=== PATIENT | male | born 1980 | race African-American/Black ===

== ENCOUNTER 2017-01-05 10:32 | Emergency (ER) | payer SELFPAY ==
[2017-01-05 10:38] VITALS: TEMP 98.1; BMI 41.9
[2017-01-05] MEDS ORDERED: SODIUM CHLORIDE 1,000 ML IV ONE (10:56)
--- NOTE | 2017-01-05 11:08 | PDOC ---
History of Present Illness - General History Source: Patient, Family - History of Present Illness Initial Comments: 01/05/17 12:54 The patient is a 36 year old male, with a significant past medical history of diabetes, hypertension, hyperlipidemia, and asthma who presents to the emergency department complaining of left sided abdominal pain, left flank pain, and hypertension for approximately 1 month. The patient reports he normally races up to school with his children, however, about a month ago as he was jogging up to school he had to stop along the way due to left-sided abdominal pain. The patient reports the pain is intermittent and mainly comes at night, with symptoms usually lasting several minutes. The patient denies worsening of the pain on exertion. He currently rates the pain a 3/10, but at about 09:00 the pain was a 5/10. He reports unassociated nausea, but denies vomiting, diarrhea, or constipation. At night he reports dry eyes, but denies any changes in vision. The patient admits he has been noncompliant with his diabetes medications since his diagnosis in 2005; however, as of 2 weeks ago he has been taking metformin BID. He reports increased urinary frequency, but denies urgency , dysuria, or hematuria. The patient denies any chest pain, shortness of breath , diaphoresis or palpitations. The patient reports a cough(associated with marijuana use), but denies any fever, chills, headache, or dizziness. Allergies: None reported. Past Surgical History: None reported. Social History: Marijuana smoker. Denies alcohol or other recreational drug use. PCP: Dr. Zia Soto <Bekah Wagner - Last Filed: 01/05/17 12:54> - General History Source: Patient Exam Limitations: No Limitations <Morgan Mcdermott - Last Filed: 01/05/17 13:54> - General Chief Complaint: Pain, Acute Stated Complaint: LT SIDE/ABD PAIN. BLURRY VISION Time Seen by Provider: 01/05/17 10:42 Past History <Bekah Wagner - Last Filed: 01/05/17 12:54> - Past Medical History Asthma: Yes Diabetes: Yes HTN: Yes Hypercholesterolemia: Yes - Immunization History Immunization Up to Date: Yes - Psycho/Social/Smoking Cessation Hx Anxiety: No Suicidal Ideation: No Smoking History: Never smoked Number of Cigarettes Smoked Daily: 0 Cigars Per Day: 0 Information on smoking cessation initiated: No Hx Alcohol Use: No Drug/Substance Use Hx: Yes (MARIJUANA) Substance Use Type: None <Morgan Mcdermott - Last Filed: 01/05/17 13:54> - Past Medical History Allergies/Adverse Reactions: Allergies Allergy/AdvReac Type Severity Reaction Status Date / Time No Known Allergies Allergy Verified 01/05/17 10:38 Home Medications: Ambulatory Orders Albuterol Sulfate Inhaler - [Ventolin HFA Inhaler -] 2 inh PO Q4H PRN #1 inh 02/26 Losartan/Hydrochlorothiazide [Losartan-Hctz 100-12.5 mg Tab] 1 each PO ASDIR 02/26 Prednisone [Deltasone -] 20 mg PO BID #10 tablet 03/19/15 Review of Systems - Review of Systems Able to Perform ROS?: Yes Comments:: 01/05/17 12:55 CONSTITUTIONAL: No reported: Fever, Chills, Diaphoresis, Generalized Weakness, Malaise, Loss of Appetite HEENT: +Dry eyes. No reported: Rhinorrhea, Nasal Congestion, Throat Pain, Throat Swelling, Difficulty Swallowing, Mouth Swelling, Ear Pain, Eye Pain, Visual Changes CARDIOVASCULAR: No reported: Chest Pain, Syncope, Palpitations, Irregular Heart Rate, Lightheadedness, Peripheral Edema RESPIRATORY: +Cough. No reported: Shortness of Breath, SOB with Exertion, Orthopnea, Wheezing , Stridor, Hemoptysis GASTROINTESTINAL: +Abdominal pain, +Nausea. No reported: Abdominal Distension, Vomiting, Diarrhea , Constipation, Melena, Hematochezia GENITOURINARY: +Frequency, +Left flank pain. No reported: Dysuria, Urgency, Hesitancy, Genital Pain MUSCULOSKELETAL: No reported: Myalgia, Arthralgia, Joint Swelling, Back pain, Neck Pain SKIN: No reported: Rash, Itching, Pallor HEMEATOLOGIC/IMMUNOLOGIC: No reported: Easy Bleeding, Easy Bruising, Lymphadenopathy, Frequent infections ENDOCRINE: No reported: Unexplained Weight Gain, Unexplained Weight Loss, Heat Intolerance , Cold Intolerance NEUROLOGIC: No reported: Headache, Focal Weakness, Paresthesias, Vertigo, Lightheadedness, Unsteady Gait, Seizure, Mental Status Changes, Incontinence PSYCHIATRIC: No reported: Anxiety, Depression <Bekah Wagner - Last Filed: 01/05/17 12:54> *Physical Exam - Vital Signs Last Vital Signs Temp Pulse Resp BP Pulse Ox 98.1 F 89 18 163/108 100 01/05/17 10:35 01/05/17 11:36 01/05/17 11:36 01/05/17 11:36 01/05/17 11:36 - Physical Exam Comments: 01/05/17 12:55 GENERAL: +Obese. The patient is awake, alert, and fully oriented, Nontoxic - in no acute distress. HEAD: Normocephalic, atraumatic. EYES: extraocular movements intact, sclera anicteric, conjunctiva clear. ENT: Normal voice, Moist mucous membranes. NECK: Normal range of motion, supple LUNGS: Breath sounds equal, clear to auscultation bilaterally. No wheezes, no rhonchi, no rales. HEART: Regular rate and rhythm, without murmur, rub or gallop. ABDOMEN: Soft, nontender, normoactive bowel sounds. No guarding, no rebound.No CVA tenderness EXTREMITIES: Normal range of motion, no edema. No clubbing or cyanosis. No cords, erythema, or tenderness. NEUROLOGICAL: No facial asymmetry, Normal speech, PSYCH: Normal mood, normal affect. SKIN: Warm, Dry, normal turgor, No rashes <Wagner,Giomilsy - Last Filed: 01/05/17 12:54> - Vital Signs Last Vital Signs Temp Pulse Resp BP Pulse Ox 98.1 F 111 H 18 170/127 97 01/05/17 10:35 01/05/17 10:35 01/05/17 10:35 01/05/17 10:35 01/05/17 10:35 <Morgan Mcdermott - Last Filed: 01/05/17 13:54> Heart Score/ECG Review - ECG Impressions Comment:: 01/05/17 12:38 Twelve-lead EKG was performed and reviewed by me. There is normal sinus rhythm with a rate of 102 The axis is normal. nonspecific twave changes <Morgan Mcdermott - Last Filed: 01/05/17 13:54> ED Treatment Course - LABORATORY CBC & Chemistry Diagram: 01/05/17 11:12 01/05/17 11:12 - ADDITIONAL ORDERS Additional order review: 01/05/17 11:12 RBC 5.77 H MCV 81.8 MCHC 32.7 RDW 13.9 MPV 9.3 Neutrophils % 52.6 Lymphocytes % 35.7 Monocytes % 8.5 Eosinophils % 2.0 Basophils % 1.2 - Medications Given in the ED: ED Medications Discontinued Medications Generic Name Dose Route Start Last Admin Trade Name Kailyn PRN Reason Stop Dose Admin Ketorolac Tromethamine 30 mg 01/05/17 11:15 01/05/17 11:26 Toradol Injection - IVPUSH 01/05/17 11:16 30 mg ONCE ONE Administration <Bekah Wagner - Last Filed: 01/05/17 12:54> - LABORATORY CBC & Chemistry Diagram: 01/05/17 11:12 01/05/17 11:12 <Morgan Mcdermott - Last Filed: 01/05/17 13:54> Medical Decision Making - Medical Decision Making 01/05/17 11:09 36y M hx of dm, htn, presents with 1 month of intermittent L flank pain that lasts for several minutes before resolving associated with mild nausea, without any fever/chills, diarrhea, dysuria. Pt does note increased urination as well as feeling of dry eyes in the evening (no blurry vision as documented in triage) . pt notes he is noncompliant with his meds due to insurance issues.pts vitals noted for tachycardia, however pts exam otherwise was unremarkable without any focal tenderness. ?kidney stones vs muscle strain will give toradol, fluids will obtain ua to r/o hematuria, glucosuria will reassess A portion of this note was documented by scribe services under my direction. I have reviewed the details of the note, within reason, and agree with the documentation with the following case summary and management plan written by me 01/05/17 12:35 labs reviewed ua pending pt states pain resolved, abd is soft notnender. will reassess bgm and ua HR and BP also improved 01/05/17 13:33 ua shows glucosuria and some proteinuria - will have pt fu with pmd to have this reviewed. I discussed the physical exam findings, ancillary test results and final diagnoses with the patient. I answered all of the patient's questions. The patient was satisfied with the care received and felt comfortable with the discharge plan and treatment plan. The patient will call their primary care physician within 24 hours to arrange follow-up and will return to the Emergency Department with any new, persistent or worsening symptoms. <Morgan Mcdermott - Last Filed: 01/05/17 13:54> *DC/Admit/Observation/Transfer - Attestations Scribe Attestion: 01/05/17 11:44 Documentation prepared by Bekah Wagner, acting as medical billing coder for Morgan Mcdermott MD. <Bekah Wagner - Last Filed: 01/05/17 12:54> - Discharge Dispostion Admit: No <Morgan Mcdermott - Last Filed: 01/05/17 13:54> Diagnosis at time of Disposition: Proteinuria due to type 2 diabetes mellitus Diabetes Qualifiers: Diabetes mellitus type: type 2 Diabetes mellitus complication status: without complication Diabetes mellitus chcf insulin use: without energy efficient site manager use Qualified Code(s): E11.9 - Type 2 diabetes mellitus without complications Abdominal pain Qualifiers: Abdominal location: left upper quadrant Qualified Code(s): R10.12 - Left upper quadrant pain - Discharge Dispostion Disposition: HOME Condition at time of disposition: Improved - Referrals Referrals: Zia Soto MD [Staff Physician] - - Patient Instructions Printed Discharge Instructions: DI for Diabetes Type 2, DI for High Blood Pressure Additional Instructions: Return to the emergency department immediately with ANY new, persistent or worsening symptoms. You MUST call and follow up with your doctor tomorrow for further evaluation of your symptoms. Results were discussed with you. Please make sure your doctor reviews the results of your emergency evaluation. If you had any xrays during your visit, it was read preliminarily by myself, a Radiologist will review it and if there are any additional findings we will call you. Print Language: GREEK
[2017-01-05] MEDS ORDERED: KETOROLAC TROMETHAMINE 30 MG/1 ML VIAL IVPUSH ONE (11:15)
[2017-01-05 11:24] LABS: BASOPHIL 1.2 % (0-2.0); MCH 26.7 pg (25.7-33.7); MCHC 32.7 g/dl (32.0-35.9); MEAN CELL VOLUME 81.8 fl (80-96); MEAN PLT VOLUME 9.3 fl (7.5-11.1); NEUTROPHILS 52.6 % (42.8-82.8); PLATELET COUNT 234 K/MM3 (134-434); RDW 13.9 % (11.9-15.9); WHITE BLOOD COUNT 6.3 K/mm3 (4.0-10.0)
[2017-01-05] MEDS ORDERED: KETOROLAC TROMETHAMINE 30 MG/1 ML VIAL ONE (11:25)
[2017-01-05 11:49] LABS: ALBUMIN 3.2 g/dl (3.4-5.0); ANION GAP 14 (8-16); BILIRUBIN,TOTAL 0.3 mg/dL (0.2-1.0); CALCIUM 9.4 mg/dL (8.5-10.1); CO2 33 mmol/L (21-32); CREATININE 1.3 mg/dL (0.7-1.3); SGPT/ALT 49 U/L (12-78)
[2017-01-05 12:00] LABS: ALK PHOS 123 U/L (45-117)
[2017-01-05 12:04] LABS: GLUCOSE,RANDOM 379 mg/dL (74-106); SGOT/AST 32 U/L (15-37)
[2017-01-05 13:14] LABS: TROPONIN I < 0.02 ng/ml (0.00-0.05)
[2017-01-05 13:30] VITALS: BP 167/99; PULSE 84
[2017-01-05 13:30] LABS: URINE APPEARANCE CLEAR; URINE BILIRUBIN NEGATIVE (NEGATIVE); URINE BLOOD NEGATIVE (NEGATIVE); URINE COLOR COLORLESS; URINE GLUCOSE (UA) 3+ (NEGATIVE); URINE KETONE NEGATIVE (NEGATIVE); URINE LEUK ESTERASE NEGATIVE (NEGATIVE); URINE NITRITE NEGATIVE (NEGATIVE); URINE UROBILINOGEN NEGATIVE E.U./dl (0.2-1.0)
[2017-01-05 13:31] LABS: URINE PROTEIN 2+ (NEGATIVE)
[2017-01-05 13:32] LABS: URINE WBC <1 /hpf (3-5)
--- NOTE | 2017-01-06 18:33 | EKG ---
Test Reason : Blood Pressure : / mmHG Vent. Rate : 102 BPM Atrial Rate : 102 BPM P-R Int : 146 ms QRS Dur : 092 ms QT Int : 360 ms P-R-T Axes : 054 034 155 degrees QTc Int : 469 ms SINUS TACHYCARDIA T WAVE ABNORMALITY, CONSIDER ANTEROLATERAL ISCHEMIA ABNORMAL ECG NO PREVIOUS ECGS AVAILABLE Confirmed by ADORE BECERRA MD ([id number]) on 01/06/2017 6:32:41 PM Referred By: Confirmed By:ADORE BECERRA MD
== END 2017-01-05 14:01 | disposition home or self-care (01) ==
LOC: JER 10:32
PROC: 3E0333Z Introduction of Anti-inflammatory into Peripheral Vein, Percutaneous Approach (ICD-10-PCS; principal; 2017-01-05)
PROC: 3E0337Z Introduction of Electrolytic and Water Balance Substance into Peripheral Vein, Percutaneous Approach (ICD-10-PCS; 2017-01-05)
DX: E11.9 Type 2 diabetes mellitus without complications (principal); R10.12 Left upper quadrant pain; I10 Essential (primary) hypertension
CPT/HCPCS: 36415; 80053; 81003; 81015; 82550; 83690; 84484; 85025; 93005; 93010; 96360; 96372; 99284-25

== ENCOUNTER 2020-05-19 17:44 | Emergency (ER) | payer OTHER ==
[2020-05-19 17:57] VITALS: BMI 39.2
[2020-05-19] MEDS ORDERED: DIPHTH,PERTUSS(ACELL),TET 0.5 ML DISP.SYRIN IM ONE ×2 (18:58→20:10)
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
[2020-05-19 20:28] VITALS: BP 161/103; PULSE 91
[2020-05-20 02:21] VITALS: TEMP 97.1
== END 2020-05-19 19:30 | disposition short-term general hospital (02) ==
LOC: JER 17:44
PROC: 3E0234Z Introduction of Serum, Toxoid and Vaccine into Muscle, Percutaneous Approach (ICD-10-PCS; principal; 2020-05-19)
DX: S51.832A Puncture wound without foreign body of left forearm, initial encounter (principal); S09.90XA Unspecified injury of head, initial encounter; H33.21 Serous retinal detachment, right eye; T76.11XA Adult physical abuse, suspected, initial encounter; W22.8XXA Striking against or struck by other objects, initial encounter; Y04.8XXA Assault by other bodily force, initial encounter
CPT/HCPCS: 70450-TC; 70480-TC; 76512; 90715; 99284-25

== ENCOUNTER 2022-06-06 09:26 | Emergency (ER) | payer OTHER ==
[2022-06-06 09:34] VITALS: BP 167/126; PULSE 90; RESP 18; TEMP 97; BMI 36.6
[2022-06-06] MEDS ORDERED: IBUPROFEN 600 MG TABLET (FP) PO ONE ×2 (09:58→10:00)
== END 2022-06-06 10:30 | disposition home or self-care (01) ==
LOC: JERFT 09:26
DX: S69.92XA Unspecified injury of left wrist, hand and finger(s), initial encounter (principal); W22.8XXA Striking against or struck by other objects, initial encounter
CPT/HCPCS: 73130-TC-LT-FY; 99283-25

== ENCOUNTER 2024-03-03 17:36 | Inpatient (IN) | payer OTHER ==
[2024-03-03] MEDS: ACETAMINOPHEN 500 MG TABLET (FP) PO ONE (19:38)
[2024-03-03 20:01] LABS: BASO % 0.9 % (0-2.0); EOS % 10.4 % (0-4.5); HEMOGLOBIN 7.9 GM/dL (11.7-16.9); LYMPH % 15.9 % (8-40); MCH 25.8 pg (25.7-33.7); MCHC 32.7 g/dl (32.0-35.9); MEAN CELL VOLUME 78.9 fl (80-96); MEAN PLT VOLUME 8.8 fl (7.5-11.1); MONO % 6.2 % (3.8-10.2); NEUT % 66.6 % (42.8-82.8); PLATELET COUNT 299 10^3/uL (134-434); RBC 3.04 M/mm3 (4.00-5.60); WHITE BLOOD COUNT 6.7 K/mm3 (4.0-10.0)
[2024-03-03] MEDS ORDERED: ACETAMINOPHEN INJECTION 100 ML IVPB ONE (20:24)
[2024-03-03] MEDS: ACETAMINOPHEN 1000 MG/100 ML BAG IVPB ONE (20:31)
[2024-03-03] MEDS: LACTATED RINGERS SOLUTION 1000 ML INFUS.BAG IV ONE (20:32)
[2024-03-03 20:34] LABS: VENOUS BASE EXCESS -7.1 mmol/L (-2-2); VENOUS O2 SATURATION 54.9 % (70-80); VENOUS PCO2 37.5 mmHg (38-52); VENOUS PH 7.311 (7.310-7.410)
[2024-03-03 20:37] LABS: EPI CELLS >36 /uL (0-25.1); HYALINE CASTS 1 /uL (0-3.1); PH,URINE 5.5 (5.0-8.0); URINE APPEARANCE CLOUDY; URINE BACTERIA 9 /uL (0-1359); URINE BILIRUBIN NEGATIVE (NEGATIVE); URINE COLOR YELLOW; URINE GLUCOSE (UA) NEGATIVE (NEGATIVE); URINE KETONE NEGATIVE (NEGATIVE); URINE LEUK ESTERASE 1+ (NEGATIVE); URINE NITRITE NEGATIVE (NEGATIVE); URINE PROTEIN 3+ (NEGATIVE); URINE RBC 89 /uL (0-23.9); URINE UROBILINOGEN 0.2 mg/dL (0.2-1.0); URINE WBC 235 /uL (0-25.8)
[2024-03-03 20:55] LABS: CHLORIDE 94 mmol/L (98-107); SODIUM 138 mmol/L (136-145)
[2024-03-03 20:58] LABS: ALBUMIN 3.5 g/dl (3.4-5.0); GLUCOSE,RANDOM 79 mg/dL (74-106); MAGNESIUM 2.5 mg/dL (1.8-2.4)
[2024-03-03 20:59] LABS: CO2 20 mmol/L (21-32)
[2024-03-03 21:01] LABS: SGPT/ALT 23 U/L (13-61)
[2024-03-03 21:02] LABS: SGOT/AST 12 U/L (15-37); TOT PROT 6.4 g/dl (6.4-8.2)
[2024-03-03 21:04] LABS: ALK PHOS 70 U/L (45-117); BILIRUBIN,TOTAL 0.4 mg/dL (0.2-1)
[2024-03-03 21:47] LABS: ANION GAP 24 mmol/L (4-13); BLOOD UREA NITROGEN 173.5 mg/dL (7-18); CALCIUM 5.7 mg/dL (8.5-10.1); CREATININE 28.2 mg/dL (0.55-1.3); POTASSIUM 2.8 mmol/L (3.5-5.1)
[2024-03-03] MEDS ORDERED: KCL 10 MEQ IVPB 20 MEQ/200 ML INFUS.BAG IVPB ONE (22:05)
[2024-03-03] MEDS: KCL 10 MEQ IVPB 10 MEQ/100 ML INFUS.BAG IVPB SCH (22:19)
[2024-03-03] MEDS ORDERED: SODIUM CHLORIDE 250 ML IV PRN (23:54)
[2024-03-04] MEDS ORDERED: CALCIUM GLUCONATE 10% - 1,000 MG/10 ML VIAL ONE (00:39)
[2024-03-04] MEDS ORDERED: KCL 10 MEQ IVPB 10 MEQ/100 ML INFUS.BAG IVPB ONE (00:40)
[2024-03-04] MEDS: CALCIUM GLUCONATE 10% - 1,000 MG/10 ML VIAL IVPB ONE ×2 (01:11→11:00)
[2024-03-04] MEDS ORDERED: ALBUTEROL SO4 HFA INHALER IH PRN (01:53)
[2024-03-04] MEDS: LABETALOL HCL 5 MG/1 ML (100MG/20 ML VIAL) IVPUSH ONE ×2 (02:20→03:05)
[2024-03-04] MEDS: MUPIROCIN 2% TOPICAL OINTMENT FOR DECOLONIZATION NS SCH (02:21)
[2024-03-04] MEDS: NICARDIPINE 25 MG in DEXTROSE 5%-WATER - 240 ML IVPB SCH ×2 (04:45→08:03)
[2024-03-04] MEDS: SODIUM CHLORIDE 250 ML IV STA (05:30)
[2024-03-04] MEDS: PANTOPRAZOLE 40 MG TABLET PO SCH (06:16)
[2024-03-04] MEDS: INSULIN ASPART SLIDING SCALE (NOVOLOG) 1 VIAL SQ SCH ×2 (06:16→07:04)
[2024-03-04 06:43] LABS: BASO % 0.7 % (0-2.0); EOS % 8.1 % (0-4.5); HEMATOCRIT 21.2 % (35.4-49); HEMOGLOBIN 7.1 GM/dL (11.7-16.9); LYMPH % 11.4 % (8-40); MCH 26.5 pg (25.7-33.7); MCHC 33.8 g/dl (32.0-35.9); MEAN CELL VOLUME 78.4 fl (80-96); MEAN PLT VOLUME 8.9 fl (7.5-11.1); MONO % 8.3 % (3.8-10.2); NEUT % 71.5 % (42.8-82.8); PLATELET COUNT 262 10^3/uL (134-434); RDW 14.1 % (11.9-15.9); WHITE BLOOD COUNT 7.7 K/mm3 (4.0-10.0)
[2024-03-04 06:50] LABS: COCAINE, UR NEGATIVE (NEGATIVE); OPIATES, URI NEGATIVE (NEGATIVE); URINE BARBITURATES NEGATIVE (NEGATIVE)
[2024-03-04 06:51] LABS: PHENCYCLIDINE,URINE NEGATIVE (NEGATIVE)
[2024-03-04 06:52] LABS: METHADONE, UR NEGATIVE (NEGATIVE); URINE BENZODIAZEPINES NEGATIVE (NEGATIVE)
[2024-03-04 06:58] LABS: URINE AMPHETAMINES NEGATIVE (NEGATIVE)
[2024-03-04 07:02] LABS: CO2 22 mmol/L (21-32); GLUCOSE,RANDOM 74 mg/dL (74-106); MAGNESIUM 2.1 mg/dL (1.8-2.4)
[2024-03-04 07:03] LABS: INR 1.09 (0.83-1.09); PROTHROMBIN TIME (PATIENT) 12.3 SEC (9.7-13.0)
[2024-03-04] MEDS: LACTATED RINGERS SOLUTION 1,000 ML/1,000 ML INFUS.BAG IV SCH (07:03)
[2024-03-04] MEDS: ONDANSETRON 4 MG/2 ML VIAL IVPUSH ONE (07:03)
[2024-03-04 07:06] LABS: PHOSPHOROUS 6.4 mg/dL (2.5-4.9)
[2024-03-04 08:43] LABS: CHLORIDE 99 mmol/L (98-107); SODIUM 136 mmol/L (136-145)
[2024-03-04 08:59] LABS: ANION GAP 16 mmol/L (4-13); BLOOD UREA NITROGEN 121.2 mg/dL (7-18); CALCIUM 6.5 mg/dL (8.5-10.1); CREATININE 20.5 mg/dL (0.55-1.3); POTASSIUM 2.9 mmol/L (3.5-5.1)
[2024-03-04] MEDS: LACTATED RINGERS SOLUTION 1,000 ML with POTASSIUM CHLORIDE 20 MEQ IV ONE (10:26)
[2024-03-04] MEDS: KCL 20 MEQ PREMIX BAG 20 MEQ/100 ML INFUS.BAG IVPB SCH (10:26)
[2024-03-04] MEDS: CALCIUM ACETATE 667 MG CAPSULE (FP) PO SCH (12:33)
[2024-03-04] MEDS: NIFEdipine 10 MG CAPSULE (FP) PO ONE (16:49)
[2024-03-04] MEDS: NIFEdipine E.R. 30 MG TABLET PO SCH (18:10)
[2024-03-04 20:51] LABS: BASO % 1.4 % (0-2.0); EOS % 8.1 % (0-4.5); HEMATOCRIT 23.3 % (35.4-49); HEMOGLOBIN 7.7 GM/dL (11.7-16.9); MEAN CELL VOLUME 78.9 fl (80-96); MEAN PLT VOLUME 8.7 fl (7.5-11.1); NEUT % 72.5 % (42.8-82.8); PLATELET COUNT 291 10^3/uL (134-434); RBC 2.96 M/mm3 (4.00-5.60); RDW 14.2 % (11.9-15.9); WHITE BLOOD COUNT 6.6 K/mm3 (4.0-10.0)
[2024-03-04] MEDS: MELATONIN 5 MG TABLETS PO SCH (21:16)
[2024-03-04] MEDS: CHLORHEXIDINE GLUCONATE 4% CLEANSER FOR DECOLONIZATION TP SCH (21:16)
[2024-03-04 22:15] LABS: CHLORIDE 98 mmol/L (98-107); POTASSIUM 3.1 mmol/L (3.5-5.1); SODIUM 137 mmol/L (136-145)
[2024-03-04 22:17] LABS: ALBUMIN 3.2 g/dl (3.4-5.0); ANION GAP 15 mmol/L (4-13); CO2 24 mmol/L (21-32); GLUCOSE,RANDOM 115 mg/dL (74-106)
[2024-03-04 22:20] LABS: SGOT/AST 10 U/L (15-37); SGPT/ALT 21 U/L (13-61)
[2024-03-04 22:22] LABS: BILIRUBIN,TOTAL 0.4 mg/dL (0.2-1); TOT PROT 6.1 g/dl (6.4-8.2)
[2024-03-04 22:23] LABS: ALK PHOS 66 U/L (45-117)
[2024-03-04 22:31] LABS: BLOOD UREA NITROGEN 119.1 mg/dL (7-18); CALCIUM 6.7 mg/dL (8.5-10.1); CREATININE 20.5 mg/dL (0.55-1.3)
[2024-03-05] MEDS: KCL 20 MEQ PREMIX BAG 20 MEQ/100 ML INFUS.BAG IVPB SCH (00:10)
[2024-03-05] MEDS: diphenhydrAMINE HCL 25 MG CAPSULE (FP) PO ONE (00:10)
[2024-03-05 07:03] LABS: BASO % 1.4 % (0-2.0); EOS % 6.9 % (0-4.5); HEMATOCRIT 22.6 % (35.4-49); HEMOGLOBIN 7.7 GM/dL (11.7-16.9); LYMPH % 16.7 % (8-40); MCH 26.8 pg (25.7-33.7); MEAN CELL VOLUME 78.8 fl (80-96); MONO % 6.5 % (3.8-10.2); NEUT % 68.5 % (42.8-82.8); PLATELET COUNT 295 10^3/uL (134-434); RBC 2.87 M/mm3 (4.00-5.60); RDW 14.2 % (11.9-15.9); WHITE BLOOD COUNT 7.3 K/mm3 (4.0-10.0)
[2024-03-05 07:19] LABS: CHLORIDE 97 mmol/L (98-107); INR 1.06 (0.83-1.09); POTASSIUM 3.6 mmol/L (3.5-5.1); SODIUM 134 mmol/L (136-145)
[2024-03-05 07:22] LABS: ACTIVATED PTT 29.7 SECONDS (25.2-36.5); ALBUMIN 3.2 g/dl (3.4-5.0); ANION GAP 16 mmol/L (4-13); CO2 22 mmol/L (21-32); GLUCOSE,RANDOM 104 mg/dL (74-106)
[2024-03-05 07:25] LABS: SGOT/AST 11 U/L (15-37); SGPT/ALT 18 U/L (13-61)
[2024-03-05 07:27] LABS: BILIRUBIN,TOTAL 0.4 mg/dL (0.2-1)
[2024-03-05 07:28] LABS: ALK PHOS 71 U/L (45-117)
[2024-03-05 07:46] LABS: BLOOD UREA NITROGEN 115.7 mg/dL (7-18); CALCIUM 6.9 mg/dL (8.5-10.1)
[2024-03-05] MEDS ORDERED: SODIUM CHLORIDE 250 ML IV PRN (08:30)
[2024-03-05] MEDS: EPOETIN ALFA-EPBX 4,000 UNIT/ML VIAL SQ ONE (09:30)
[2024-03-05 09:55] LABS: MAGNESIUM 2.2 mg/dL (1.8-2.4); PHOSPHOROUS 7.4 mg/dL (2.5-4.9)
[2024-03-05] MEDS: POTASSIUM CHLORIDE ORAL LIQUID 20 MEQ/15 ML PO ONE (11:29)
[2024-03-05] MEDS: NIFEdipine E.R. 30 MG TABLET PO SCH (11:29)
[2024-03-05] MEDS: POTASSIUM CHLORIDE TABS 20 MEQ TABLET.ER (FP) PO ONE (11:29)
[2024-03-05] MEDS: CALCIUM GLUCONATE 10% - 1,000 MG/10 ML VIAL IVPB ONE (11:30)
[2024-03-05] MEDS ORDERED: NIFEdipine E.R. 30 MG TABLET PO SCH (12:15)
[2024-03-05] MEDS: LABETALOL HCL 100 MG TABLET (FP) PO SCH (13:22)
[2024-03-05] MEDS ORDERED: LABETALOL HCL 100 MG TABLET (FP) PO SCH (14:00)
[2024-03-05] MEDS: NIFEdipine E.R. 30 MG TABLET PO ONE (14:29)
[2024-03-05 21:09] LABS: ANTIGLOMERULAR BASEMENT MEN.AB <0.2 units (0.0-0.9)
[2024-03-05] MEDS: diphenhydrAMINE HCL 25 MG CAPSULE (FP) PO PRN (22:34)
[2024-03-06] MEDS: diphenhydrAMINE HCL 25 MG CAPSULE (FP) PO ONE (01:15)
[2024-03-06 07:10] LABS: HEMATOCRIT 22.4 % (35.4-49); HEMOGLOBIN 7.4 GM/dL (11.7-16.9); MCH 26.3 pg (25.7-33.7); MCHC 33.1 g/dl (32.0-35.9); MEAN CELL VOLUME 79.5 fl (80-96); MEAN PLT VOLUME 8.8 fl (7.5-11.1); PLATELET COUNT 271 10^3/uL (134-434); RBC 2.82 M/mm3 (4.00-5.60); WHITE BLOOD COUNT 7.6 K/mm3 (4.0-10.0)
[2024-03-06 07:23] LABS: INR 1.07 (0.83-1.09); PROTHROMBIN TIME (PATIENT) 12.1 SEC (9.7-13.0)
[2024-03-06 07:35] LABS: CHLORIDE 98 mmol/L (98-107); SODIUM 134 mmol/L (136-145)
[2024-03-06 07:43] LABS: ALBUMIN 2.8 g/dl (3.4-5.0); ANION GAP 11 mmol/L (4-13); CALCIUM 7.3 mg/dL (8.5-10.1); CO2 25 mmol/L (21-32); GLUCOSE,RANDOM 85 mg/dL (74-106); MAGNESIUM 1.9 mg/dL (1.8-2.4)
[2024-03-06 07:45] LABS: SGPT/ALT 18 U/L (13-61)
[2024-03-06 07:46] LABS: PHOSPHOROUS 5.4 mg/dL (2.5-4.9); SGOT/AST 7 U/L (15-37)
[2024-03-06 07:48] LABS: BILIRUBIN,TOTAL 0.4 mg/dL (0.2-1); TOT PROT 5.6 g/dl (6.4-8.2)
[2024-03-06 07:49] LABS: ALK PHOS 60 U/L (45-117)
[2024-03-06 09:02] LABS: BLOOD UREA NITROGEN 81.9 mg/dL (7-18); CREATININE 15.7 mg/dL (0.55-1.3)
[2024-03-06] MEDS ORDERED: NIFEdipine E.R. 30 MG TABLET PO SCH (10:00)
[2024-03-06] MEDS: NIFEdipine E.R 60 MG TABLET PO SCH (10:04)
[2024-03-06] MEDS: DOCUSATE SODIUM 100 MG CAPSULE (FP) PO SCH (10:05)
[2024-03-06] MEDS: CALCIUM GLUCONATE 10% - 1,000 MG/10 ML VIAL IVPB ONE (10:05)
[2024-03-06] MEDS: LACTULOSE 20 GM/30 ML UDC (FOR ORAL USE ONLY) PO ONE (10:05)
[2024-03-06] MEDS ORDERED: SODIUM CHLORIDE 250 ML IV PRN ×2 (14:43→20:18)
[2024-03-06 15:51] LABS: BF WBC & OTHER NUCLEATED CELLS 274 /mm3
[2024-03-06 15:57] LABS: BODY FLUID MACROPHAGES 85 %; BODY FLUID MESOTHELIAL 2 %
[2024-03-06] MEDS ORDERED: ALBUTEROL SO4 HFA INHALER IH PRN (20:18)
[2024-03-06] MEDS ORDERED: diphenhydrAMINE HCL 25 MG CAPSULE (FP) PO PRN (20:18)
[2024-03-06] MEDS: MELATONIN 5 MG TABLETS PO SCH (21:26)
[2024-03-06] MEDS: LABETALOL HCL 100 MG TABLET (FP) PO SCH (21:26)
[2024-03-06] MEDS: INSULIN ASPART SLIDING SCALE (NOVOLOG) 1 VIAL SQ SCH (21:30)
[2024-03-07] MEDS: PANTOPRAZOLE 40 MG TABLET PO SCH (06:56)
[2024-03-07] MEDS: CALCIUM ACETATE 667 MG CAPSULE (FP) PO SCH (09:22)
[2024-03-07 10:43] LABS: BASO % 1.9 % (0-2.0); HEMATOCRIT 21.5 % (35.4-49); LYMPH % 27.1 % (8-40); MCHC 32.6 g/dl (32.0-35.9); MEAN CELL VOLUME 79.9 fl (80-96); MEAN PLT VOLUME 8.3 fl (7.5-11.1); MONO % 2.7 % (3.8-10.2); NEUT % 52.3 % (42.8-82.8); PLATELET COUNT 228 10^3/uL (134-434); RBC 2.69 M/mm3 (4.00-5.60); WHITE BLOOD COUNT 3.7 K/mm3 (4.0-10.0)
[2024-03-07 11:05] LABS: MAGNESIUM 1.9 mg/dL (1.8-2.4)
[2024-03-07 11:09] LABS: PHOSPHOROUS 4.7 mg/dL (2.5-4.9)
[2024-03-07 11:59] LABS: CHLORIDE 101 mmol/L (98-107); POTASSIUM 3.7 mmol/L (3.5-5.1); SODIUM 136 mmol/L (136-145)
[2024-03-07 12:02] LABS: ALBUMIN 2.7 g/dl (3.4-5.0)
[2024-03-07 12:03] LABS: ANION GAP 10 mmol/L (4-13); BLOOD UREA NITROGEN 78.3 mg/dL (7-18); CALCIUM 7.3 mg/dL (8.5-10.1); CO2 26 mmol/L (21-32); GLUCOSE,RANDOM 81 mg/dL (74-106)
[2024-03-07 12:05] LABS: SGPT/ALT 15 U/L (13-61)
[2024-03-07 12:06] LABS: SGOT/AST 9 U/L (15-37); TOT PROT 5.1 g/dl (6.4-8.2)
[2024-03-07 12:07] LABS: ALK PHOS 61 U/L (45-117); BILIRUBIN,TOTAL 0.3 mg/dL (0.2-1)
[2024-03-07] MEDS: DOCUSATE SODIUM 100 MG CAPSULE (FP) PO SCH (12:08)
[2024-03-07] MEDS: NIFEdipine E.R 60 MG TABLET PO SCH (12:08)
[2024-03-07 12:13] LABS: CREATININE 14.7 mg/dL (0.55-1.3)
[2024-03-07] MEDS ORDERED: EPOETIN ALFA-EPBX 10,000 UNIT/ML VIAL IVPUSH ONE (15:00)
[2024-03-07] MEDS: LABETALOL HCL 5 MG/1 ML (100MG/20 ML VIAL) IVPUSH ONE (16:27)
[2024-03-07 17:09] LABS: C-ANCA <1:20 titer (Neg:<1:20)
[2024-03-07 20:20] LABS: HEMATOCRIT 24.4 % (35.4-49); HEMOGLOBIN 8.1 GM/dL (11.7-16.9); MCH 26.7 pg (25.7-33.7); MCHC 33.3 g/dl (32.0-35.9); MEAN CELL VOLUME 80.2 fl (80-96); MEAN PLT VOLUME 8.4 fl (7.5-11.1); PLATELET COUNT 237 10^3/uL (134-434); RBC 3.05 M/mm3 (4.00-5.60); RDW 14.4 % (11.9-15.9); WHITE BLOOD COUNT 8.1 K/mm3 (4.0-10.0)
[2024-03-08] MEDS ORDERED: SODIUM CHLORIDE 250 ML IV PRN (08:41)
[2024-03-08] MEDS: EPOETIN ALFA-EPBX 10,000 UNIT/ML VIAL SQ ONE (08:56)
[2024-03-08 09:08] LABS: HEMATOCRIT 23.9 % (35.4-49); HEMOGLOBIN 7.9 GM/dL (11.7-16.9); MCH 26.5 pg (25.7-33.7); MEAN CELL VOLUME 80.5 fl (80-96); MEAN PLT VOLUME 8.2 fl (7.5-11.1); PLATELET COUNT 237 10^3/uL (134-434); RBC 2.97 M/mm3 (4.00-5.60); RDW 14.3 % (11.9-15.9); WHITE BLOOD COUNT 6.7 K/mm3 (4.0-10.0)
[2024-03-08 09:23] LABS: CHLORIDE 100 mmol/L (98-107); POTASSIUM 3.9 mmol/L (3.5-5.1); SODIUM 137 mmol/L (136-145)
[2024-03-08 09:25] LABS: ALBUMIN 2.8 g/dl (3.4-5.0); ANION GAP 9 mmol/L (4-13); CALCIUM 7.5 mg/dL (8.5-10.1); CO2 28 mmol/L (21-32); GLUCOSE,RANDOM 78 mg/dL (74-106)
[2024-03-08 09:26] LABS: BLOOD UREA NITROGEN 55.4 mg/dL (7-18)
[2024-03-08 09:29] LABS: SGOT/AST 11 U/L (15-37); SGPT/ALT 15 U/L (13-61)
[2024-03-08 09:30] LABS: BILIRUBIN,TOTAL 0.4 mg/dL (0.2-1); TOT PROT 5.4 g/dl (6.4-8.2)
[2024-03-08 09:31] LABS: ALK PHOS 60 U/L (45-117)
[2024-03-08 09:36] LABS: CREATININE 11.9 mg/dL (0.55-1.3)
[2024-03-08] MEDS: CALCITRIOL 0.25 MCG CAPSULE (FP) PO SCH (11:34)
[2024-03-08] MEDS: NIFEdipine E.R. 90 MG TABLET PO SCH (11:35)
[2024-03-08] MEDS: LABETALOL HCL 100 MG TABLET (FP) PO ONE (11:39)
[2024-03-08] MEDS: diphenhydrAMINE HCL 25 MG CAPSULE (FP) PO ONE (12:21)
[2024-03-08 17:08] LABS: BODY FLUID ALBUMIN 2.2 g/dL (Not Estab.)
[2024-03-08] MEDS: HEPARIN NA (PORCINE) 5,000 UNITS/ML 1ML VIAL SQ SCH (21:16)
[2024-03-08] MEDS: LABETALOL HCL 200 MG TABLET (FP) PO SCH (21:17)
[2024-03-09 11:37] VITALS: BMI 29.5
[2024-03-10] MEDS ORDERED: SODIUM CHLORIDE 250 ML IV PRN (10:06)
[2024-03-10 13:14] LABS: HEMATOCRIT 22.4 % (35.4-49); HEMOGLOBIN 7.4 GM/dL (11.7-16.9); MCH 26.6 pg (25.7-33.7); MCHC 33.1 g/dl (32.0-35.9); MEAN CELL VOLUME 80.3 fl (80-96); PLATELET COUNT 303 10^3/uL (134-434); RBC 2.79 M/mm3 (4.00-5.60); RDW 14.5 % (11.9-15.9); WHITE BLOOD COUNT 6.5 K/mm3 (4.0-10.0)
[2024-03-10 13:47] LABS: CHLORIDE 98 mmol/L (98-107); POTASSIUM 3.5 mmol/L (3.5-5.1); SODIUM 136 mmol/L (136-145)
[2024-03-10 13:49] LABS: ALBUMIN 2.6 g/dl (3.4-5.0); CALCIUM 7.1 mg/dL (8.5-10.1)
[2024-03-10 13:50] LABS: ANION GAP 8 mmol/L (4-13); BLOOD UREA NITROGEN 44.4 mg/dL (7-18); CO2 31 mmol/L (21-32); GLUCOSE,RANDOM 88 mg/dL (74-106)
[2024-03-10 13:52] LABS: SGPT/ALT 15 U/L (13-61)
[2024-03-10 13:53] LABS: SGOT/AST 10 U/L (15-37)
[2024-03-10 13:54] LABS: BILIRUBIN,TOTAL 0.3 mg/dL (0.2-1); TOT PROT 5.2 g/dl (6.4-8.2)
[2024-03-10 13:55] LABS: ALK PHOS 68 U/L (45-117)
[2024-03-10 13:56] LABS: CREATININE 10.7 mg/dL (0.55-1.3)
[2024-03-10] MEDS: EPOETIN ALFA-EPBX 10,000 UNIT/ML VIAL SQ ONE (14:06)
[2024-03-10] MEDS: LABETALOL HCL 100 MG TABLET (FP) PO SCH (22:08)
[2024-03-11] MEDS: diphenhydrAMINE HCL 25 MG CAPSULE (FP) PO ONE ×2 (03:50→22:01)
[2024-03-11 07:02] LABS: HEMATOCRIT 22.8 % (35.4-49); HEMOGLOBIN 7.5 GM/dL (11.7-16.9); MCH 26.7 pg (25.7-33.7); MCHC 32.8 g/dl (32.0-35.9); MEAN CELL VOLUME 81.4 fl (80-96); MEAN PLT VOLUME 7.9 fl (7.5-11.1); PLATELET COUNT 291 10^3/uL (134-434); RDW 14.6 % (11.9-15.9); WHITE BLOOD COUNT 6.4 K/mm3 (4.0-10.0)
[2024-03-11 07:28] LABS: POTASSIUM 3.7 mmol/L (3.5-5.1)
[2024-03-11 07:40] LABS: ALBUMIN 2.5 g/dl (3.4-5.0); BLOOD UREA NITROGEN 27.5 mg/dL (7-18); CALCIUM 7.4 mg/dL (8.5-10.1); MAGNESIUM 1.8 mg/dL (1.8-2.4)
[2024-03-11 07:43] LABS: BILIRUBIN,TOTAL 0.3 mg/dL (0.2-1); CREATININE 7.4 mg/dL (0.55-1.3); TOT PROT 5.1 g/dl (6.4-8.2)
[2024-03-12 06:36] LABS: HEMOGLOBIN 7.7 GM/dL (11.7-16.9); MCH 26.5 pg (25.7-33.7); MCHC 32.2 g/dl (32.0-35.9); MEAN CELL VOLUME 82.2 fl (80-96); MEAN PLT VOLUME 7.8 fl (7.5-11.1); PLATELET COUNT 338 10^3/uL (134-434); RBC 2.92 M/mm3 (4.00-5.60); WHITE BLOOD COUNT 6.4 K/mm3 (4.0-10.0)
[2024-03-12 06:54] LABS: INR 1.09 (0.83-1.09); PROTHROMBIN TIME (PATIENT) 12.3 SEC (9.7-13.0)
[2024-03-12 06:57] LABS: CHLORIDE 100 mmol/L (98-107); POTASSIUM 3.6 mmol/L (3.5-5.1); SODIUM 134 mmol/L (136-145)
[2024-03-12 07:00] LABS: CALCIUM 7.6 mg/dL (8.5-10.1); GLUCOSE,RANDOM 71 mg/dL (74-106)
[2024-03-12 07:01] LABS: ANION GAP 6 mmol/L (4-13); BLOOD UREA NITROGEN 35.6 mg/dL (7-18); CO2 29 mmol/L (21-32)
[2024-03-12 07:18] LABS: CREATININE 8.9 mg/dL (0.55-1.3)
[2024-03-12] MEDS ORDERED: POVIDONE-IODINE OINTMENT 10% - 28.4 GM TUBE ONE (07:42)
[2024-03-12] MEDS ORDERED: LIDOCAINE HCL 1%, 10 MG/ML (20ML VIAL) ONE (07:43)
[2024-03-12] MEDS ORDERED: PAPAVERINE HCL 30 MG/1 ML 10 ML VIAL NR ONE (07:43)
[2024-03-12] MEDS ORDERED: HEPARIN NA (PORCINE) 5,000 UNITS/ML 1ML VIAL ONE (07:43)
[2024-03-12] MEDS ORDERED: LIDOCAINE HCL/PF 2% SDV 5ML VIAL ONE (09:13)
[2024-03-12] MEDS ORDERED: FENTANYL CITRATE/PF 50 MCG/ML VIAL ONE ×2 (09:14→11:26)
[2024-03-12] MEDS ORDERED: MIDAZOLAM HCL 2 MG/2 ML SINGLE DOSE VIAL ONE (09:14)
[2024-03-12] MEDS ORDERED: PROPOFOL 20 ML ONE ×2 (09:14→11:25)
[2024-03-12] MEDS ORDERED: ceFAZolin SODIUM 1 GM VIAL ONE (10:08)
[2024-03-12] MEDS ORDERED: DEXAMETHASONE SOD PHOSPHATE 4 MG/1 ML VIAL ONE (10:08)
[2024-03-12] MEDS: ceFAZolin SODIUM 1 GM VIAL IVPB ONE (10:16)
[2024-03-12] MEDS ORDERED: ROCURONIUM BROMIDE 50 MG/5 ML SYRINGE ONE (11:26)
[2024-03-12] MEDS ORDERED: KETOROLAC TROMETHAMINE 30 MG/1 ML VIAL ONE (11:39)
[2024-03-12] MEDS ORDERED: ONDANSETRON 4 MG/2 ML VIAL ONE (11:39)
[2024-03-12] MEDS ORDERED: SODIUM CHLORIDE 250 ML IV PRN ×2 (11:43→12:37)
[2024-03-12] MEDS ORDERED: EPOETIN ALFA-EPBX 10,000 UNIT/ML VIAL SQ ONE (11:43)
[2024-03-12] MEDS ORDERED: PROMETHAZINE HCL 25 MG/1 ML VIAL IVPB PRN (12:14)
[2024-03-12] MEDS ORDERED: ONDANSETRON 4 MG/2 ML VIAL IVPUSH PRN (12:14)
[2024-03-12] MEDS ORDERED: EPOETIN ALFA-EPBX 10,000 UNIT/ML VIAL IVPUSH ONE (12:37)
[2024-03-12] MEDS ORDERED: ALBUTEROL SO4 HFA INHALER IH PRN (12:37)
[2024-03-12] MEDS: ACETAMINOPHEN 1000 MG/100 ML BAG IVPB ONE ×2 (13:00)
[2024-03-12 14:03] VITALS: RESP 18
[2024-03-12 14:58] VITALS: TEMP 98
[2024-03-12] MEDS: LACTATED RINGERS SOLUTION 1,000 ML IV SCH (15:00)
[2024-03-12] MEDS ORDERED: oxyCODONE HCL 5 MG TABLET PO PRN ×2 (15:12→15:13)
[2024-03-12] MEDS ORDERED: ACETAMINOPHEN 325 MG TABLET (FP) PO PRN ×2 (15:13)
[2024-03-12] MEDS: EPOETIN ALFA-EPBX 4,000 UNIT/ML VIAL IVPUSH ONE (17:07)
[2024-03-12] MEDS: HEPARIN NA (PORCINE) 5,000 UNITS/ML 1ML VIAL SQ SCH (17:56)
[2024-03-12] MEDS: CALCIUM ACETATE 667 MG CAPSULE (FP) PO SCH (17:57)
[2024-03-12] MEDS: LABETALOL HCL 100 MG TABLET (FP) PO ONE (18:11)
[2024-03-12 18:32] VITALS: BP 130/98; PULSE 70
[2024-03-12] MEDS ORDERED: LABETALOL HCL 100 MG TABLET (FP) PO SCH (22:00)
[2024-03-12] MEDS ORDERED: MELATONIN 5 MG TABLETS PO SCH (22:00)
[2024-03-13] MEDS ORDERED: PANTOPRAZOLE 40 MG TABLET PO SCH (07:00)
[2024-03-13] MEDS ORDERED: DOCUSATE SODIUM 100 MG CAPSULE (FP) PO SCH (10:00)
[2024-03-13] MEDS ORDERED: NIFEdipine E.R. 90 MG TABLET PO SCH (10:00)
[2024-03-13] MEDS ORDERED: CALCITRIOL 0.25 MCG CAPSULE (FP) PO SCH (10:00)
== END 2024-03-12 18:42 | disposition home or self-care (01) | DRG 444 ==
LOC: JER 17:36 → JERBED 22:48 → JICU 03-04 02:31 → J2W 03-06 19:38
PROVIDERS: ADMIT Internal Medicine Pulmonary Disease; ATTEND Internal Medicine
PROC: 05HM33Z Insertion of Infusion Device into Right Internal Jugular Vein, Percutaneous Approach (ICD-10-PCS; 2024-03-03)
PROC: B543ZZA Ultrasonography of Right Jugular Veins, Guidance (ICD-10-PCS; 2024-03-03)
PROC: 5A1D70Z Performance of Urinary Filtration, Intermittent, Less than 6 Hours Per Day (ICD-10-PCS; 2024-03-04)
PROC: 5A1D70Z Performance of Urinary Filtration, Intermittent, Less than 6 Hours Per Day (ICD-10-PCS; 2024-03-05)
PROC: 0W9G3ZZ Drainage of Peritoneal Cavity, Percutaneous Approach (ICD-10-PCS; 2024-03-06)
PROC: 5A1D70Z Performance of Urinary Filtration, Intermittent, Less than 6 Hours Per Day (ICD-10-PCS; 2024-03-07)
PROC: 5A1D70Z Performance of Urinary Filtration, Intermittent, Less than 6 Hours Per Day (ICD-10-PCS; 2024-03-10)
PROC: 5A1D70Z Performance of Urinary Filtration, Intermittent, Less than 6 Hours Per Day (ICD-10-PCS; 2024-03-11)
PROC: B543ZZA Ultrasonography of Right Jugular Veins, Guidance (ICD-10-PCS; 2024-03-12)
PROC: 5A1D70Z Performance of Urinary Filtration, Intermittent, Less than 6 Hours Per Day (ICD-10-PCS; 2024-03-12)
PROC: 03180ZD Bypass Left Brachial Artery to Upper Arm Vein, Open Approach (ICD-10-PCS; principal; 2024-03-12 15:30)
PROC: 05HM33Z Insertion of Infusion Device into Right Internal Jugular Vein, Percutaneous Approach (ICD-10-PCS; 2024-03-12 15:30)
DX: I12.0 Hypertensive chronic kidney disease with stage 5 chronic kidney disease or end stage renal disease (principal); N18.6 End stage renal disease; E78.5 Hyperlipidemia, unspecified; E11.22 Type 2 diabetes mellitus with diabetic chronic kidney disease; E11.9 Type 2 diabetes mellitus without complications; N17.9 Acute kidney failure, unspecified; E83.51 Hypocalcemia; E87.6 Hypokalemia; J45.909 Unspecified asthma, uncomplicated; I16.0 Hypertensive urgency; I24.89 Other forms of acute ischemic heart disease; R18.8 Other ascites; D63.1 Anemia in chronic kidney disease; R79.89 Other specified abnormal findings of blood chemistry; M62.82 Rhabdomyolysis; S00.12XA Contusion of left eyelid and periocular area, initial encounter; S00.83XA Contusion of other part of head, initial encounter; W18.39XA Other fall on same level, initial encounter; Y92.099 Unspecified place in other non-institutional residence as the place of occurrence of the external cause; Y99.9 Unspecified external cause status; Z99.2 Dependence on renal dialysis
CPT/HCPCS: 0241U-QW; 36415; 36430; 70450-TC; 71045-TC-FY; 74176-TC; 76000-TC-FY; 76775-TC; 80048; 80053; 80307; 81003; 82042; 82272; 82550; 82553; 82570; 82728; 82803; 82945; 82962; 83036; 83516; 83520; 83540; 83550; 83615; 83735; 83930; 83970; 84100; 84155; 84157; 84165; 84436; 84443; 84479; 84484; 84540; 85025; 85027; 85610; 85730; 86038; 86160; 86225; 86256; 86704; 86803; 86850; 86900; 86901; 86922; 87070; 87075; 87086; 87205; 87340; 87517; 88108; 88305-TC; 93005; 93010; 93306-TC; 93975; 94760; 97116-GP; 97162-GP; 99285-25; C1750; C1757; J0131; J1644; P9058; Q5106

== ENCOUNTER 2024-04-30 04:13 | Day surgery (SDC) | payer OTHER ==
[2024-04-28 11:45] VITALS: BMI 29.3
[2024-04-30] MEDS ORDERED: LIDOCAINE HCL 1%, 10 MG/ML (20ML VIAL) ONE (07:23)
[2024-04-30] MEDS ORDERED: PAPAVERINE HCL 30 MG/1 ML 10 ML VIAL NR ONE (07:23)
[2024-04-30] MEDS ORDERED: POVIDONE-IODINE OINTMENT 10% - 28.4 GM TUBE ONE (07:23)
[2024-04-30] MEDS ORDERED: HEPARIN NA (PORCINE) 5,000 UNITS/ML 1ML VIAL ONE (07:23)
[2024-04-30 07:36] VITALS: BP 137/89; PULSE 75; RESP 18; TEMP 99.5
== END 2024-04-30 08:39 | disposition home or self-care (01) ==
LOC: JASU-SURG 04:13
PROVIDERS: ATTEND Surgery
DX: Z53.8 Procedure and treatment not carried out for other reasons (principal)
CPT/HCPCS: J1644

== ENCOUNTER 2024-05-21 04:31 | Day surgery (SDC) | payer OTHER ==
[2024-05-20 15:16] VITALS: BMI 26.4
[2024-05-21] MEDS ORDERED: HEPARIN NA (PORCINE) 5,000 UNITS/ML 1ML VIAL ONE (07:03)
[2024-05-21] MEDS ORDERED: LIDOCAINE HCL 1%, 10 MG/ML (20ML VIAL) ONE (07:03)
[2024-05-21] MEDS ORDERED: PAPAVERINE HCL 30 MG/1 ML 10 ML VIAL NR ONE (07:19)
[2024-05-21] MEDS ORDERED: POVIDONE-IODINE OINTMENT 10% - 28.4 GM TUBE ONE (07:19)
[2024-05-21] MEDS ORDERED: BUPIVACAINE HCL/PF 0.25% (2.5MG/ML) 10 ML VIAL ONE (07:20)
[2024-05-21 07:40] LABS: INR 1.05 (0.83-1.09); PROTHROMBIN TIME (PATIENT) 11.9 SEC (9.7-13.0)
[2024-05-21 07:53] LABS: POTASSIUM 6.2 mmol/L (3.5-5.1)
[2024-05-21] MEDS ORDERED: MIDAZOLAM HCL 2 MG/2 ML SINGLE DOSE VIAL ONE (08:08)
[2024-05-21] MEDS ORDERED: PROPOFOL 20 ML ONE ×5 (08:08→09:26)
[2024-05-21] MEDS ORDERED: ceFAZolin SODIUM 1 GM VIAL ONE (08:09)
[2024-05-21] MEDS ORDERED: LIDOCAINE HCL/PF 2% SDV 5ML VIAL ONE (08:09)
[2024-05-21] MEDS ORDERED: SODIUM CHLORIDE 0.9% P/F 10 ML VIAL IJ ONE (08:09)
[2024-05-21] MEDS: ceFAZolin SODIUM 1 GM VIAL IVPB ONE ×2 (08:22)
[2024-05-21 08:32] LABS: CHLORIDE 104 mmol/L (98-107); SODIUM 137 mmol/L (136-145)
[2024-05-21] MEDS: LIDOCAINE HCL 1%, 10 MG/ML (20ML VIAL) NR ONE ×3 (08:32)
[2024-05-21 08:34] LABS: ALBUMIN 4.2 g/dl (3.4-5.0); ANION GAP 9 mmol/L (4-13); CALCIUM 9.4 mg/dL (8.5-10.1); CO2 24 mmol/L (21-32); GLUCOSE,RANDOM 77 mg/dL (74-106)
[2024-05-21 08:37] LABS: SGOT/AST 8 U/L (15-37); SGPT/ALT 25 U/L (13-61)
[2024-05-21 08:39] LABS: BILIRUBIN,TOTAL 0.4 mg/dL (0.2-1); TOT PROT 7.5 g/dl (6.4-8.2)
[2024-05-21 08:40] LABS: ALK PHOS 125 U/L (45-117)
[2024-05-21 08:41] LABS: CREATININE 9.8 mg/dL (0.55-1.3)
[2024-05-21] MEDS ORDERED: DEXTROSE 50%-WATER 25 GM/50 ML DISP.SYRIN ONE ×2 (09:15→12:22)
[2024-05-21] MEDS: POVIDONE-IODINE OINTMENT 10% - 28.4 GM TUBE TP ONE ×2 (09:58)
[2024-05-21] MEDS ORDERED: PROMETHAZINE HCL 25 MG/1 ML VIAL IVPB PRN (10:18)
[2024-05-21] MEDS ORDERED: ONDANSETRON 4 MG/2 ML VIAL IVPUSH PRN (10:18)
[2024-05-21] MEDS: INSULIN REGULAR HUMAN 100 UNITS/ML *VIAL IV ONE (10:30)
[2024-05-21] MEDS: SODIUM CHLORIDE 1,000 ML IV SCH (10:30)
[2024-05-21] MEDS ORDERED: SODIUM CHLORIDE 250 ML IV PRN (10:32)
[2024-05-21] MEDS: SODIUM ZIRCONIUM CYCLOSILICATE (LOKELMA) 5 GM PACKET PO SCH ×2 (11:15→18:23)
[2024-05-21] MEDS: DEXTROSE 50%-WATER 25 GM/50 ML DISP.SYRIN IVPUSH ONE (12:23)
[2024-05-21] MEDS ORDERED: ALBUTEROL SO4 HFA INHALER IH PRN (12:58)
[2024-05-21 13:34] LABS: HEMATOCRIT 36.6 % (35.4-49); HEMOGLOBIN 11.7 GM/dL (11.7-16.9); MCH 27.4 pg (25.7-33.7); MCHC 31.9 g/dl (32.0-35.9); MEAN CELL VOLUME 85.7 fl (80-96); MEAN PLT VOLUME 8.4 fl (7.5-11.1); PLATELET COUNT 222 10^3/uL (134-434); RBC 4.27 M/mm3 (4.00-5.60); RDW 17.1 % (11.9-15.9); WHITE BLOOD COUNT 7.2 K/mm3 (4.0-10.0)
[2024-05-21 13:54] LABS: CHLORIDE 105 mmol/L (98-107); POTASSIUM 5.5 mmol/L (3.5-5.1); SODIUM 140 mmol/L (136-145)
[2024-05-21 13:56] LABS: CALCIUM 8.4 mg/dL (8.5-10.1)
[2024-05-21 13:57] LABS: ALBUMIN 3.6 g/dl (3.4-5.0); ANION GAP 8 mmol/L (4-13); BLOOD UREA NITROGEN 28.5 mg/dL (7-18); CO2 27 mmol/L (21-32); GLUCOSE,RANDOM 116 mg/dL (74-106)
[2024-05-21 14:00] LABS: SGOT/AST 7 U/L (15-37); SGPT/ALT 19 U/L (13-61)
[2024-05-21 14:01] LABS: BILIRUBIN,TOTAL 0.4 mg/dL (0.2-1); CREATININE 9.3 mg/dL (0.55-1.3); TOT PROT 6.4 g/dl (6.4-8.2)
[2024-05-21 14:03] LABS: ALK PHOS 106 U/L (45-117)
[2024-05-21 15:10] VITALS: RESP 18
[2024-05-21] MEDS: CALCIUM ACETATE 667 MG CAPSULE (FP) PO SCH (18:22)
[2024-05-21] MEDS: DOCUSATE SODIUM 100 MG CAPSULE (FP) PO SCH (18:22)
[2024-05-21] MEDS: CALCIUM GLUCONATE IN NACL 1 GM/50 ML BAG IVPB ONE (18:23)
[2024-05-21] MEDS: oxyCODONE HCL 5 MG TABLET PO PRN (18:35)
[2024-05-21] MEDS: LABETALOL HCL 100 MG TABLET (FP) PO SCH (21:37)
[2024-05-21] MEDS: ACETAMINOPHEN 1000 MG/100 ML BAG IVPB PRN (22:52)
[2024-05-22 06:42] VITALS: BP 166/99; PULSE 72; TEMP 98.1
[2024-05-22] MEDS: NIFEdipine E.R. 90 MG TABLET PO SCH (09:39)
[2024-05-22 11:13] LABS: POTASSIUM 4.9 mmol/L (3.5-5.1)
[2024-05-22 11:15] LABS: CALCIUM 8.8 mg/dL (8.5-10.1)
[2024-05-22 11:16] LABS: BLOOD UREA NITROGEN 22.9 mg/dL (7-18)
[2024-05-22 11:19] LABS: CREATININE 6.8 mg/dL (0.55-1.3)
== END 2024-05-22 13:44 | disposition home or self-care (01) ==
LOC: JASU-SURG 04:31 → UNDOADMIN 10:39 → J2C 10:39 → J8W 17:49 → JASU-SURG 05-22 13:44
PROVIDERS: ATTEND Internal Medicine
PROC: 051C0ZY Bypass Left Basilic Vein to Upper Vein, Open Approach (ICD-10-PCS; principal; 2024-05-21 08:00)
DX: I12.0 Hypertensive chronic kidney disease with stage 5 chronic kidney disease or end stage renal disease (principal); E11.22 Type 2 diabetes mellitus with diabetic chronic kidney disease; N18.6 End stage renal disease; Z99.2 Dependence on renal dialysis
CPT/HCPCS: 36415; 80048; 80053; 82962; 85027; 85610; 86803; 87340; 94760; J0131; J1644

== ENCOUNTER 2024-07-16 19:55 | Inpatient (IN) | payer OTHER ==
[2024-07-16 20:09] VITALS: BMI 26.1
[2024-07-16 21:50] LABS: BASO % 1.3 % (0-2.0); EOS % 11.1 % (0-4.5); HEMATOCRIT 37.9 % (35.4-49); HEMOGLOBIN 12.3 GM/dL (11.7-16.9); LYMPH % 33.8 % (8-40); MCH 26.8 pg (25.7-33.7); MCHC 32.3 g/dl (32.0-35.9); MEAN CELL VOLUME 82.8 fl (80-96); MEAN PLT VOLUME 8.7 fl (7.5-11.1); MONO % 9.4 % (3.8-10.2); NEUT % 44.4 % (42.8-82.8); PLATELET COUNT 224 10^3/uL (134-434); RBC 4.58 M/mm3 (4.00-5.60); RDW 16.6 % (11.9-15.9); WHITE BLOOD COUNT 5.5 K/mm3 (4.0-10.0)
[2024-07-16 21:57] LABS: PROTHROMBIN TIME (PATIENT) 11.5 SEC (9.7-13.0)
[2024-07-16 21:58] LABS: POTASSIUM 4.4 mmol/L (3.5-5.1)
[2024-07-16 22:00] LABS: ACTIVATED PTT 35.6 SECONDS (25.2-36.5); CALCIUM 10.6 mg/dL (8.5-10.1)
[2024-07-16 22:01] LABS: ALBUMIN 3.9 g/dl (3.4-5.0)
[2024-07-16 22:04] LABS: CREATININE 7.2 mg/dL (0.55-1.3)
[2024-07-16 22:05] LABS: BILIRUBIN,TOTAL 0.5 mg/dL (0.2-1); TOT PROT 7.5 g/dl (6.4-8.2)
[2024-07-17] MEDS: ceFAZolin SODIUM 1 GM VIAL IVPB ONE
[2024-07-17] MEDS ORDERED: LABETALOL HCL 100 MG TABLET (FP) ONE (05:52)
[2024-07-17] MEDS: LABETALOL HCL 100 MG TABLET (FP) PO ONE (06:12)
[2024-07-17 07:59] LABS: HEMATOCRIT 38.1 % (35.4-49); HEMOGLOBIN 11.8 GM/dL (11.7-16.9); MCH 26.5 pg (25.7-33.7); MEAN CELL VOLUME 85.3 fl (80-96); PLATELET COUNT 202 10^3/uL (134-434); RBC 4.46 M/mm3 (4.00-5.60); RDW 16.6 % (11.9-15.9); WHITE BLOOD COUNT 5.5 K/mm3 (4.0-10.0)
[2024-07-17 08:10] LABS: CHLORIDE 103 mmol/L (98-107); POTASSIUM 4.8 mmol/L (3.5-5.1); SODIUM 137 mmol/L (136-145)
[2024-07-17 08:12] LABS: ALBUMIN 3.4 g/dl (3.4-5.0); BLOOD UREA NITROGEN 41.7 mg/dL (7-18); CALCIUM 10.1 mg/dL (8.5-10.1)
[2024-07-17 08:13] LABS: ANION GAP 5 mmol/L (4-13); CO2 29 mmol/L (21-32); GLUCOSE,RANDOM 96 mg/dL (74-106); MAGNESIUM 2.4 mg/dL (1.8-2.4)
[2024-07-17 08:16] LABS: PHOSPHOROUS 6.5 mg/dL (2.5-4.9); SGOT/AST 8 U/L (15-37); SGPT/ALT 19 U/L (13-61)
[2024-07-17 08:17] LABS: BILIRUBIN,TOTAL 0.4 mg/dL (0.2-1); CREATININE 7.7 mg/dL (0.55-1.3); TOT PROT 6.4 g/dl (6.4-8.2)
[2024-07-17 08:18] LABS: ALK PHOS 90 U/L (45-117)
[2024-07-17] MEDS: CALCIUM ACETATE 667 MG CAPSULE (FP) PO SCH (08:54)
[2024-07-17] MEDS ORDERED: LIDOCAINE HCL 1%, 10 MG/ML (20ML VIAL) ONE (08:55)
[2024-07-17] MEDS ORDERED: HEPARIN NA (PORCINE) 5,000 UNITS/ML 1ML VIAL ONE (08:55)
[2024-07-17] MEDS ORDERED: METOCLOPRAMIDE HCL INJECTION 10 MG/2 ML VIAL ONE (09:08)
[2024-07-17] MEDS ORDERED: ceFAZolin SODIUM 1 GM VIAL ONE (09:08)
[2024-07-17] MEDS ORDERED: ONDANSETRON 4 MG/2 ML VIAL ONE (09:08)
[2024-07-17] MEDS ORDERED: MIDAZOLAM HCL 2 MG/2 ML SINGLE DOSE VIAL ONE (09:39)
[2024-07-17] MEDS: HEPARIN NA (PORCINE) 5,000 UNITS/ML 1ML VIAL SQ ONE ×2 (09:59)
[2024-07-17] MEDS: LIDOCAINE HCL 1%, 10 MG/ML (20ML VIAL) INF ONE ×3 (09:59)
[2024-07-17] MEDS: NIFEdipine E.R. 90 MG TABLET PO SCH (11:18)
[2024-07-17] MEDS: LABETALOL HCL 100 MG TABLET (FP) PO SCH (11:19)
[2024-07-17 12:24] VITALS: RESP 18; TEMP 97.7
[2024-07-17 13:33] VITALS: BP 162/90; PULSE 70
== END 2024-07-17 13:20 | disposition home or self-care (01) | DRG 182 ==
LOC: JER 19:55 → JERBED 22:36 → OBSVTOIN 07-17 00:14
PROVIDERS: ADMIT Internal Medicine; ATTEND Nurse Practitioner
PROC: 03783ZZ Dilation of Left Brachial Artery, Percutaneous Approach (ICD-10-PCS; principal; 2024-07-17 09:30)
DX: T82.858A Stenosis of other vascular prosthetic devices, implants and grafts, initial encounter (principal); N18.6 End stage renal disease; E11.22 Type 2 diabetes mellitus with diabetic chronic kidney disease; I12.0 Hypertensive chronic kidney disease with stage 5 chronic kidney disease or end stage renal disease; Y83.9 Surgical procedure, unspecified as the cause of abnormal reaction of the patient, or of later complication, without mention of misadventure at the time of the procedure
CPT/HCPCS: 36415; 76000-TC-FY; 80053; 83735; 84100; 85025; 85027; 85610; 85730; 86850; 86900; 86901; 93005; 93010; 94760; 99285-25; G0378; J1644